=== PATIENT | female | born 1970 | race Two or more races ===

== ENCOUNTER 2020-12-06 10:34 | Emergency (ER) | payer SELFPAY ==
[~2020-12-06] VITALS: Ht 165.1 cm; Wt 93.9 kg
--- NOTE | 2020-12-06 10:45 | NUR ---
[place] HOME, ANXIETY, TOLD FATHER THAT SHE THINKS SHE IS HAVING A HEART ATTACH. THE PATIENT IS ALERT AND ORIENTED X4. IN ROOM AIR AND DENIES SOB. RESPIRATION REGULAR AND UNLABORED. WILL CONTINUE TO MONITOR THE PATIENT.
[2020-12-06 11:07] LABS: BASOPHILS % (AUTO) 0.3 % (0.0-2.0); EOSINOPHILS % (AUTO) 3.6 % (0.0-6.0); HEMATOCRIT 37 % (33-45); HEMOGLOBIN 12.5 g/dL (11.5-14.8); LYMPHOCYTES # (AUTO) 2.3 /CMM (0.8-4.8); LYMPHOCYTES % (AUTO) 35.9 % (20.0-44.0); MEAN CORPUSCULAR HGB CONC 34 g/dl (31.0-36.0); MEAN CORPUSCULAR VOLUME 86 fL (82-100); MONOCYTES # (AUTO) 0.4 /CMM (0.1-1.30); MONOCYTES % (AUTO) 6.9 % (2.0-12.0); NEUTROPHILS # (AUTO) 3.5 /CMM (1.8-8.9); NEUTROPHILS % (AUTO) 53.3 % (43.0-81.0); PLATELET COUNT (AUTO) 324 /CMM (150-450); RED BLOOD CELL COUNT(AUTO) 4.28 MIL/uL (4.0-5.2); WHITE BLOOD COUNT (AUTO) 6.5 K/uL (4.3-11.0)
[2020-12-06 11:17] LABS: CARBON DIOXIDE 26 mmol/L (21-32); CHLORIDE 105 mmol/L (98-107); CREATININE 0.7 mg/dL (0.6-1.3); GLUCOSE 106 mg/dL (74-106); POTASSIUM 3.8 mmol/L (3.5-5.1); SODIUM SERUM 140 mmol/L (136-145); UREA NITROGEN, BLOOD 14 mg/dL (7-18)
--- NOTE | 2020-12-06 12:13 | NUR ---
The patient alert and oriented x4. Patient discharged to home in stable condition. Written and verbal after care instructions given. Patient verbalizes understanding of instruction. medical records supervisor done by father.
[2020-12-06 12:14] VITALS: BP 131/70
== END 2020-12-06 12:14 | disposition home or self-care (01) ==
LOC: ER 10:36
DX: R07.89 Other chest pain (principal); F41.9 Anxiety disorder, unspecified
CPT/HCPCS: 36415; 71045-TC; 80048-TC; 84484-TC; 85025-TC

== ENCOUNTER 2021-10-09 20:21 | Emergency (ER) | payer OTHER ==
[~2021-10-09] VITALS: Ht 165.1 cm; Wt 77.1 kg
--- NOTE | 2021-10-09 20:45 | NUR ---
BIBRA FROM HOME C/O S/I NEEDS MEDREFILL. PATIENT IN BED 14 PLACED IN A GOWN BELONGINGS TAKEN. ON A MONITOR AND POX AWAITING MD RUEDA.
--- NOTE | 2021-10-09 20:46 | NUR ---
COVID SWAB COLLECTED SENT TO LAB
--- NOTE | 2021-10-09 20:48 | NUR ---
URINE COLLECTED AND SENT TO LAB
[2021-10-09 21:09] LABS: BILIRUBIN,URINE NEGATIVE (NEGATIVE); COLOR,URINE YELLOW (YELLOW); LEUKOCYTE ESTERASE ,URINE SMALL (NEGATIVE); NITRITE, URINE NEGATIVE (NEGATIVE); PROTEIN,URINE NEGATIVE (NEGATIVE); UGLUCOSE NEGATIVE (NEGATIVE); UROBILINOGEN,URINE 0.2 EU/dL (0.2)
[2021-10-09 21:11] LABS: BASOPHILS % (AUTO) 0.2 % (0.0-2.0); EOSINOPHILS % (AUTO) 1.1 % (0.0-6.0); HEMATOCRIT 39 % (33-45); HEMOGLOBIN 12.9 g/dL (11.5-14.8); LYMPHOCYTES # (AUTO) 2.1 K/uL (0.8-4.8); LYMPHOCYTES % (AUTO) 31.4 % (20.0-44.0); MEAN CORPUSCULAR HGB CONC 33 g/dl (31.0-36.0); MEAN CORPUSCULAR VOLUME 85 fL (82-100); MONOCYTES # (AUTO) 0.4 K/uL (0.1-1.30); MONOCYTES % (AUTO) 5.6 % (2.0-12.0); NEUTROPHILS # (AUTO) 4.1 K/uL (1.8-8.9); NEUTROPHILS % (AUTO) 61.7 % (43.0-81.0); PLATELET COUNT (AUTO) 331 K/uL (150-450); RED BLOOD CELL COUNT(AUTO) 4.55 MIL/uL (4.0-5.2); WHITE BLOOD COUNT (AUTO) 6.7 K/uL (4.3-11.0)
[2021-10-09 21:28] LABS: BACTERIA,URINE 1+ /HPF (None Seen)
[2021-10-09 21:29] LABS: COARSE GRANULAR CASTS,URINE Few /LPF (None Seen); SQUAMOUS EPITHELIAL CELL,UR Few /HPF (None Seen)
[2021-10-09 21:33] LABS: ALANINE AMINOTRANSFERASE 11 U/L (12-78); ALBUMIN 4.3 g/dL (3.4-5.0); ALCOHOL, BLOOD < 3 mg/dL (0-0); ALKALINE PHOSPHATASE 53 U/L (46-116); ASPARTATE AMINOTRANSFERASE 0 U/L (15-37); BILIRUBIN,DIRECT 0.1 mg/dL (0.0-0.2); CALCIUM, SERUM 9.5 mg/dL (8.5-10.1); CARBON DIOXIDE 26 mmol/L (21-32); CHLORIDE 104 mmol/L (98-107); CREATININE 0.8 mg/dL (0.6-1.3); GLUCOSE 113 mg/dL (74-106); POTASSIUM 3.9 mmol/L (3.5-5.1); SODIUM SERUM 139 mmol/L (136-145); TOTAL PROTEIN, SERUM 7.7 g/dL (6.4-8.2); UREA NITROGEN, BLOOD 11 mg/dL (7-18)
[2021-10-09] MEDS ORDERED: LORAZEPAM 1 MG TABLET ONE ×2 (22:12→23:18)
[2021-10-09] MEDS: LORAZEPAM 1 MG TABLET PO ONE ×2 (22:13→23:22)
[2021-10-09 22:30] LABS: BILIRUBIN,TOTAL 0.4 mg/dL (0.2-1.0)
[2021-10-10] MEDS ORDERED: diphenhydrAMINE HCL 50 MG/ML VIAL ONE (01:40)
[2021-10-10] MEDS ORDERED: OLANZAPINE 10 MG VIAL IM ONE (01:40)
[2021-10-10] MEDS ORDERED: QUETIAPINE FUMARATE 25 MG TABLET ONE (01:40)
--- NOTE | 2021-10-10 01:45 | NUR ---
DAWIT CRISIS CAR SUPPLIER AT BEDSIDE.
[2021-10-10] MEDS: QUETIAPINE FUMARATE 25 MG TABLET PO SCH (01:47)
[2021-10-10] MEDS: OLANZAPINE 10 MG VIAL IM ONE (01:47)
[2021-10-10] MEDS: diphenhydrAMINE HCL 50 MG/ML VIAL IV ONE (01:47)
--- NOTE | 2021-10-10 03:08 | NUR ---
ACCEPTED INTO [facility] UNDER DR. HIGUERA REPORT # [phone] GOING TO UNIT 1.
[2021-10-10 03:43] VITALS: BP 135/72
--- NOTE | 2021-10-10 03:47 | NUR ---
[facility] WILL BE HERE IN 60 MIN TO TRANSPORT TO [facility]
--- NOTE | 2021-10-10 04:10 | NUR ---
REPORT GIVEN TO NURSE CAGLE
--- NOTE | 2021-10-10 04:16 | NUR ---
REPORT GIVEN TO EMS AT BEDSIDE
== END 2021-10-10 04:20 ==
LOC: ER 20:33
DX: R45.851 Suicidal ideations (principal); F13.20 Sedative, hypnotic or anxiolytic dependence, uncomplicated; Z20.822 Contact with and (suspected) exposure to COVID-19; F32.A Depression, unspecified; F41.9 Anxiety disorder, unspecified; F11.20 Opioid dependence, uncomplicated
CPT/HCPCS: 36415; 80048; 80076; 80143; 80307; 80320; 81001; 84703; 85025; 87086; 87426; 96372; 96374; 99285; C9803; J1200; J3490; G0480

== ENCOUNTER 2021-10-17 15:13 | Emergency (ER) | payer OTHER ==
[~2021-10-17] VITALS: Ht 165.1 cm; Wt 77.1 kg
--- NOTE | 2021-10-17 15:20 | NUR ---
PATIENT CAME WITH AMBULANCE. ACCOMPANIED BY [employer]. FOR MED REFILL, PATIENT IS ANXIOUS. PLACED COMFORTABLY IN BED. VITALS SIGNS
[2021-10-17 16:18] LABS: BILIRUBIN,URINE NEGATIVE (NEGATIVE); COLOR,URINE YELLOW (YELLOW); LEUKOCYTE ESTERASE ,URINE NEGATIVE (NEGATIVE); NITRITE, URINE NEGATIVE (NEGATIVE); PH,URINE 7.5 (5.0-8.0); PROTEIN,URINE NEGATIVE (NEGATIVE); UGLUCOSE NEGATIVE (NEGATIVE); UROBILINOGEN,URINE 0.2 EU/dL (0.2)
[2021-10-17 16:22] LABS: BASOPHILS % (AUTO) 0.3 % (0.0-2.0); EOSINOPHILS % (AUTO) 1.2 % (0.0-6.0); HEMATOCRIT 36 % (33-45); LYMPHOCYTES # (AUTO) 1.4 K/uL (0.8-4.8); LYMPHOCYTES % (AUTO) 24.4 % (20.0-44.0); MEAN CORPUSCULAR HGB CONC 34 g/dl (31.0-36.0); MEAN CORPUSCULAR VOLUME 85 fL (82-100); MONOCYTES # (AUTO) 0.3 K/uL (0.1-1.30); MONOCYTES % (AUTO) 5.8 % (2.0-12.0); NEUTROPHILS # (AUTO) 3.8 K/uL (1.8-8.9); NEUTROPHILS % (AUTO) 68.3 % (43.0-81.0); PLATELET COUNT (AUTO) 285 K/uL (150-450); RED BLOOD CELL COUNT(AUTO) 4.16 MIL/uL (4.0-5.2); WHITE BLOOD COUNT (AUTO) 5.6 K/uL (4.3-11.0)
[2021-10-17 16:42] LABS: BACTERIA,URINE Few /HPF (None Seen); SQUAMOUS EPITHELIAL CELL,UR Few /HPF (None Seen); URINE AMORPHOUS PHOSPHATES Few /HPF (None Seen); WBC,URINE 0-2 /HPF (0-3)
--- NOTE | 2021-10-17 16:48 | NUR ---
FATHER (DR SUSANNAH MONROY ) [phone]
[2021-10-17 16:49] LABS: ALANINE AMINOTRANSFERASE 16 U/L (12-78); ALBUMIN 3.8 g/dL (3.4-5.0); ALCOHOL, BLOOD < 3 mg/dL (0-0); ALKALINE PHOSPHATASE 49 U/L (46-116); ASPARTATE AMINOTRANSFERASE 9 U/L (15-37); BILIRUBIN,DIRECT 0.1 mg/dL (0.0-0.2); BILIRUBIN,TOTAL 0.3 mg/dL (0.2-1.0); CALCIUM, SERUM 9.2 mg/dL (8.5-10.1); CARBON DIOXIDE 27 mmol/L (21-32); CHLORIDE 104 mmol/L (98-107); CREATININE 0.7 mg/dL (0.6-1.3); GLUCOSE 130 mg/dL (74-106); SODIUM SERUM 140 mmol/L (136-145); TOTAL PROTEIN, SERUM 6.9 g/dL (6.4-8.2); UREA NITROGEN, BLOOD 16 mg/dL (7-18)
[2021-10-17 16:57] LABS: ACETAMINOPHEN 0 ug/ml (10-30)
--- NOTE | 2021-10-17 23:10 | NUR ---
CALLED STRING TOP SEALER DAWIT LEFT VOICEMAIL
[2021-10-18] MEDS ORDERED: LORAZEPAM 1 MG TABLET ONE ×3 (00:15→22:11)
--- NOTE | 2021-10-18 00:32 | NUR ---
SOHAIL PASTOR AT BEDSIDE FOR EVAL
--- NOTE | 2021-10-18 07:20 | NUR ---
PATIENT AAOX3, BREATHING EVEN AND NON LABORED, THINKING ABOUT GOING HOME, WILL LET THE NURSE KNOW
--- NOTE | 2021-10-18 11:30 | NUR ---
FAXED CLINICALS TO [facility]TA[facility].
[2021-10-18] MEDS ORDERED: LORAZEPAM 1 MG TABLET PO ONE ×3 (12:30→21:30)
--- NOTE | 2021-10-18 15:04 | NUR ---
CALLED [facility] AWAITING FEEDBACK.
--- NOTE | 2021-10-18 16:40 | NUR ---
CALLED [facility] STILL AWAITING FEEDBACK PER ALAINA.
--- NOTE | 2021-10-19 02:05 | NUR ---
PT A, OX4. DENIED SI/HI, AMBULATORY WITH STEADY GAITS. REPORTED FEELING WELL AND WILLING TO LEAVE AND NO LONGER WANNA WAIT FOR [facility]. MADE AWARE
--- NOTE | 2021-10-19 02:17 | NUR ---
PT IS MEDICALLY STABLE FOR D/C , Patient discharged to home in stable condition. Written and verbal after care instructions given. Patient verbalizes understanding of instruction.
[2021-10-19 02:19] VITALS: BP 112/67
== END 2021-10-19 02:19 | disposition home or self-care (01) ==
LOC: ER 15:43
DX: F41.9 Anxiety disorder, unspecified (principal); F11.10 Opioid abuse, uncomplicated; F32.A Depression, unspecified; Z20.822 Contact with and (suspected) exposure to COVID-19
CPT/HCPCS: 36415; 80048-TC; 80076-TC; 81001; 85025-TC; G0480